=== PATIENT | male | born 1980 | race Caucasian/White ===

== ENCOUNTER 2017-02-13 10:23 | Emergency (ER) | payer BC ==
--- NOTE | 2017-02-13 13:08 | ED CLINICAL REPORT ---
Clinical Report - Physicians/Mid Levels [facility] [address] [place] [address] 02/13/2017 10:23 Patient: CONRADO TOLENTINO Time Seen: 10:40. Arrived- By private vehicle. Historian- patient. HISTORY OF PRESENT ILLNESS Chief Complaint: CHEST PAIN. At its maximum, severity described as moderate. When seen in the E.D., severity described as moderate. This started today at about 8 AM and is still present. It was abrupt in onset and has been constant. Onset during rest. It is described as sharp and it is described as located in the central chest area. No radiation. No nausea or vomiting. He has had moderate difficulty breathing and has experienced diaphoresis. (he has associated R arm numbness). REVIEW OF SYSTEMS No chills, fever, calf pain or pedal edema. He has experienced sweats. He has had severe palpitations of sudden onset. The palpitations seem rapid. All systems otherwise negative, except as recorded above. PAST HISTORY PCP - SUSAN Sanchez. Problems: Anxiety Reaction. Hypertension. Bronchitis. Additional Surgeries: EGD. Medications: None. Allergies: None. SOCIAL HISTORY Smoker- current status unknown (chews tobacco). Heavy alcohol use; consumes a large amount of beer. (last night). History of drug use weeks: cocaine, marijuana. Recently used drugs yesterday. Is a local resident. FAMILY HISTORY No history of aortic aneurysm or dissection. Hypertension in first-degree relative (father) and grandparent. ADDITIONAL NOTES The nursing notes have been reviewed. PHYSICAL EXAM Vital Signs: 02/13/2017 10:26 BP: 142/95. HR: 128. RR: 20. O2 saturation: 97%. Temp: 99.0 F. Have been reviewed. Appearance: Alert. Anxious. Eyes: Pupils equal, round and reactive to light. ENT: Pharynx normal. Neck: Normal inspection. Neck supple. CVS: Normal heart rate and rhythm. Heart sounds normal. Respiratory: No respiratory distress. Breath sounds normal. Abdomen: Soft and nontender. Bowel sounds normal. No organomegaly. No mass. Back: Normal external inspection. Skin: Skin warm and dry. Normal skin color. No rash. Normal skin turgor. Extremities: Extremities exhibit normal ROM. No clubbing present. No calf tenderness. No lower extremity edema. LABS, X-RAYS, AND EKG EKG: Rate: 123. Tachycardia. Prior EKG unavailable. The study has been independently viewed by me. Chest X-ray: No acute disease. The X-rays were independently viewed by me. Laboratory Tests: UA-Culture if indicated: (MERARI: 02/13/2017 11:50) ( [facility] [place]/13[place] 12:13) Final results Test Result Flag Units (Reference) URINE COLOR YELLOW URINE APPEARANCE CLEAR URINE GLUCOSE 1+ (NEGATIVE) URINE BILIRUBIN NEGATIVE (NEGATIVE) URINE KETONE 1+ (NEGATIVE) URINE SPECIFIC GRAVITY >= 1.030 (1.010-1.030) URINE PH 5.5 (5.0-8.0) URINE PROTEIN TRACE (NEGATIVE) URINE UROBILINOGEN 0.2 EU/dL (0.2-1.0) URINE NITRITE NEGATIVE (NEGATIVE) URINE BLOOD NEGATIVE (NEGATIVE) URINE LEUK ESTERASE NEGATIVE (NEGATIVE) URINE RBC 0-1 rbc/hpf (0-1) URINE WBC 1-3 wbc/hpf (0-1) URINE EPITHELIAL CELLS RARE EPI/hpf (0-5) URINE BACTERIA FEW (1+) (NONE SEEN) URINE COMMENT CULT NOT INDICATED 1+ MUCOUS. RARE HYALINE CAST.URINE CULTURES ARE SET-UP BASED ON THE FOLLOWING CRITERIA:POSITIVE NITRITEPOSITIVE LEUKOCYTE ESTERASEGREATER THAN 10 WHITE BLOOD CELLSMODERATE (2+) OR GREATER BACTERIA CBC w Diff: (MERARI: 02/13/2017 10:35) ( [facility] [place] 02/13/2017 10:45) Final results Test Result Flag Units (Reference) WHITE BLOOD COUNT 13.2 H K/uL (4.5-11.5) RED BLOOD COUNT 5.23 M/uL (4.50-5.90) HEMOGLOBIN 16.8 gm/dL (13.5-17.5) HEMATOCRIT 49.6 % (41.0-53.0) MEAN CELL VOLUME 95 fL (80-100) MEAN CORPUSCULAR HGB 32 pg (26-34) MEAN CORPUSCULAR HGB CONC 34 g/dL (31-37) RED CELL DISTRIBUTION WIDTH 13.8 % (11.6-14.8) PLATELET COUNT 232 K/uL (150-400) NEUTROPHIL % 83.1 H % (50-75) LYMPH % 10.9 L % (25-40) MONO % 5.6 % (3-14) EOSINOPHIL % 0.1 % (0-4) BASOPHIL % 0.3 % (0-2) [id number]: (MERARI: 02/13/2017 10:35) ( [facility] 02/13/2017 11:36) Final results Test Result Flag Units (Reference) D-DIMER QUANTITATIVE < 0.27 L ug/mLFEU (0.27-0.52) The primary value of this quantitative assay relates toits negative predictive value (i.e. exclusion) of pulmonaryembolism/deep vein thrombosis/DIC.Elevated levels of d-dimer may also occur with:, age, cancer, inflammation, liver disease,post-op, infection, hematoma, coronary disease, peripheralarteriopathy, bleeding disorders and thrombolytic treatment.Results should be correlated with other clinical andradiological data.Testing Methodology: Latex Immunoassay PT with INR: (MERARI: 02/13/2017 10:35) ( [facility] 02/13/2017 11:10) Final results Test Result Flag Units (Reference) INR 0.9 (0.8-1.2) Low Intensity Therapy: INR 1.5-2.0 PT range 18.5-23.1Mod.Intensity Therapy: INR 2.0-3.0 PT range 23.1-31.5High Intensity Therapy: INR 2.5-3.5 PT range 27.4-35.5High Intensity Therapy 2: INR 3.0-4.0 PT range 31.5-39.3 APTT 21 L SECONDS (24-34) Ethyl Alcohol: (MERARI: 02/13/2017 10:35) ( [facility] [place]/13[place] 11:45) Final results Test Result Flag Units (Reference) ETHYL ALCOHOL 45 H mg/dL (3-10) BNP: (MERARI: 02/13/2017 10:35) ( [facility] [place] 02/13/2017 11:10) Final results Test Result Flag Units (Reference) B-TYPE NATRIURETIC PEPTIDE < 5.0 L pg/ml (5-100) Urine Drug Screen: (MERARI: 02/13/2017 11:50) ( [facility] 02/13/2017 12:28) Final results Test Result Flag Units (Reference) AMPHETAMINE/METHAMPHETAMINE NEGATIVE (NEGATIVE) BARBITURATE NEGATIVE (NEGATIVE) BENZODIAZEPINE NEGATIVE (NEGATIVE) CANNABINOID POSITIVE H (NEGATIVE) COCAINE POSITIVE H (NEGATIVE) ECSTASY NEGATIVE (NEGATIVE) METHADONE NEGATIVE (NEGATIVE) OPIATE NEGATIVE (NEGATIVE) The urine drug screen is a qualitative screening test fordrug overdose and abuse. All screen results should beconsidered as presumptive.Drugs screened for are as follows:BenzodiazepinesCocaineAmphetamines/MetamphetaminesTHC (Tetrahydrocannabinol)OpiatesBarbituratesEcstasyMethadonePositive results are unconfirmed. For confirmation, notifythe lab for the specimen to be sent to the reference lab.All confirmations must be performed by a differentmethodology.The ingestion of natural herbal and plant productscontaining Ephedra/Ephedra metabolites can produce in urineone or more substances capable of cross reacting withamphetamine/methamphetamine immunoassays. These testsprovide a preliminary result only. A more specificalternative chemical method must be used to obtain aconfirmed analytical result. CHEM 13 PANEL: (MERARI: 02/13/2017 10:35) ( [facility] 02/13/2017 11:09) Final results Test Result Flag Units (Reference) GLUCOSE 126 H mg/dL (70-110) BUN 14 mg/dL (7-18) CREATININE 0.9 mg/dL (0.6-1.3) Estimated GFR >60 mL/min Estimated GFR- >60 mL/min Note: Persistent reduction over 3 months in eGFR<60 mL/min/1.73 m2 defines CKD. Patients with eGFR values>=60 mL/min/1.73 m2 may also have CKD if evidence ofpersistent proteinuria. Additional information may be foundat [email or web address]. SODIUM 142 mmol/L (136-145) POTASSIUM 3.6 mmol/L (3.5-5.1) CHLORIDE 101 mmol/L (98-107) CARBON DIOXIDE 24 mmol/L (21-32) CALCIUM 9.1 mg/dL (8.5-10.1) TOTAL PROTEIN 8.9 H g/dL (6.4-8.2) ALBUMIN 4.4 g/dL (3.3-5.0) BILIRUBIN, TOTAL 0.3 mg/dL (0.0-1.0) ALKALINE PHOSPHATASE 84 U/L (46-116) AST (SGOT) 20 U/L (15-37) ALT (SGPT) 22 U/L (12-78) MAGNESIUM 1.9 mg/dL (1.8-2.4) LIPASE 182 U/L (73-393) AMYLASE 56 U/L (25-115) CPK 88 U/L (24-260) TROPONIN I 0.08 ng/mL (0.00-1.5) TROPONIN REFERENCE RANGE:<0.1 NEGATIVE0.1-1.5 INDETERMINANT>1.5 POSITIVE . PROGRESS AND PROCEDURES Patient/family counseled. Disposition: Discharged. Condition: stable. CLINICAL IMPRESSION Chest pain. Substance abuse- alcohol, marijuana, cocaine. INSTRUCTIONS No driving or operating machinery today. Rest. No alcohol. Seek medical help to quit drinking. (Pursue substance abuse counseling and therapy as discussed. Please contact some of the services on the list you were provided.). Warnings: Further evaluation is necessary. Follow-up: Follow up with your doctor in five days. Call for the next available appointment. Understanding of the discharge instructions verbalized by patient. (Electronically signed by Pacheco Garza MD 02/13/2017 13:25)
--- NOTE | 2017-02-13 13:08 | ED ORDER SUMMARY ---
..... Patient: CONRADO TOLENTINO OrderSheet [facility] VisitID: [id number] [place] [address] 36y, M Registration Date/Time: 02/13/2017 ORDER SHEET Weight: 74.8 kg (stated) Allergies: None GENERAL ORDERS: Chest 1V Urgent (10:34 02/13/2017 DDean R.N. per protocol) (Ack 10:51 Syed) (10:52 DDean R.N.) Spoon Maker (Continuous) (10:35 02/13/2017 DDean R.N. per protocol) (10:36 DDean R.N.) UA-Culture if indicated Urgent (10:36 02/13/2017 DDean R.N. per protocol) (Ack 10:51 Syed) (11:55 DDean R.N.) Cardiac Panel Stat (10:36 02/13/2017 DDean R.N. per protocol) (10:40 Nelly CHIN) (Cancelled: Other10:40 Nelly CHIN) Oxygen (2 L/min) (NC) (10:36 02/13/2017 DDean R.N. per protocol) (10:36 DDean R.N.) EKG - ER Stat (10:36 02/13/2017 DDean R.N. per protocol) (10:36 LNations ER Tech1) CBC w Diff Urgent (10:41 02/13/2017 Nelly CHIN) (Ack 10:51 Syed) (10:52 DDean R.N.) CMP Urgent (10:41 02/13/2017 Nelly CHIN) (Ack 10:51 Syed) (10:52 DDean R.N.) PT with INR Urgent (10:41 02/13/2017 Nelly CHIN) (Ack 10:51 Syed) (10:52 DDean R.N.) PTT Urgent (10:41 02/13/2017 Nelly CHIN) (Ack 10:51 Syed) (10:52 DDean R.N.) Amylase Urgent (10:41 02/13/2017 Nelly CHIN) (Ack 10:51 Syed) (10:52 DDean R.N.) Lipase Urgent (10:41 02/13/2017 Nelly CHIN) (Ack 10:51 Syed) (10:52 DDean R.N.) CPK Urgent (10:41 02/13/2017 Nelly CHIN) (Ack 10:51 Syed) (10:52 DDean R.N.) Troponin-I Urgent (10:41 02/13/2017 Nelly CHIN) (Ack 10:51 Syed) (10:52 DDean R.N.) Urine Drug Screen Urgent (10:41 02/13/2017 Nelly CHIN) (Ack 10:51 Syed) (11:55 DDean R.N.) BNP Urgent (10:41 02/13/2017 Nelly CHIN) (Ack 10:51 Syed) (10:52 DDean R.N.) Ethyl Alcohol Urgent (11:13 02/13/2017 Nelly CHIN) (11:18 TJoerdawit) D-Dimer Urgent (11:14 02/13/2017 Nelly CHIN) (11:18 TJoerdawit) MEDICATION ORDERS: Aspirin PO 325 mg (NOW) (10:41 02/13/2017 Nelly CHIN) (10:46 DDean R.N.) IV FLUIDS: IV Saline Lock (10:36 02/13/2017 DDean R.N. per protocol) (Ack 10:36 DDean R.N.) (10:55 DDean R.N.) ORDER SHEET NOTES: [Electronically signed by Pacheco Garza MD (13:25 02/13/2017)] [Electronically signed by Niecy Peck R.N. (14:20 02/13/2017)] [Electronically locked/signed by Niecy Peck R.N. (14:20 02/13/2017)]
--- NOTE | 2017-02-13 13:08 | ED NURSING NOTES ---
Clinical Report - Nurses [facility] [address] [place] [address] 02/13/2017 10:23 Patient: CONRADO TOLENTINO TRIAGE Triage time 1025. Acuity: LEVEL 3. Chief Complaint: CHEST PAIN and (midline chest pressure onset 0730 today while laying in bed. Pt states he did take some cocaine last night). ALONSO COMA SCORE: Alonso Coma Scale: 15- eyes open spontaneously (4); best verbal response- oriented x 4 (5); best motor response- obeys commands (6). --10:32 Niecy Peck R.N. 10:26 02/13/17. BP: 142/95. HR: 128. RR: 20. O2 saturation: 97%. Temp: 99.0 F. Pain level now 10. --10:32 Niecy Peck R.N. Weight: 74.8 kg stated. Height/Length: 68 inches Per Patient. BMI: 25.1. --10:25 Niecy Peck R.N. Medications None. --10:31 Niecy Peck R.N. Allergies None. --10:31 Niecy Peck R.N. History Arrived by private vehicle. Historian: patient. Accompanied by spouse. No primary care physician. Onset. (0730). He has had difficulty breathing. Reports experiencing sweating episodes. No nausea or vomiting. PAST MEDICAL HX: Hypertension. ( Hypoglycemia, ulcers). SOCIAL HX: Light tobacco smoker (chews 1 can a week). Alcohol use; consumes six beers a day. History of drug use: cocaine, marijuana. --10:32 Niecy Peck R.N. Interventions ID band on patient. To treatment room. --10:32 Niecy Peck R.N. PHYSICAL ASSESSMENT 10:25. Ambulatory to room. Patient gowned. GENERAL / NEURO / PSYCH: Alert. Oriented X 4. Appears in pain and anxious. RESPIRATORY: Respirations not labored. Chest wall tenderness. CVS: Pulses within normal limits. Capillary refill less than 2 seconds. GI / : Abdomen soft. EXTREMITIES: No lower extremity edema. SKIN: Skin is warm and dry. ( pt states that his face feels flushed). --10:34 Niecy Peck R.N. NURSING PROGRESS NOTES 10:25. Oxygen administered. Monitoring of patient in place. Patient gowned. Head of bed elevated. Reassurance given. Patient identifiers checked. Call light placed in reach. Bed placed in lowest position. Patient placed in chair. Patient ready for evaluation- chart flagged. --10:32 Niecy Peck R.N. 10:33 02/13/2017 Site #1 started via IV in the left antecubital space with an 20g angiocath, with aseptic technique and good blood return; one attempt. Blood drawn: rainbow set. Sent to the lab. Saline lock flushed with 10 mL saline (by NOY Smiley). --10:33 Niecy Peck R.N. EKG time: (1035). EKG was ordered, performed by a tech and shown to the ED physician. --10:38 Alexandra Drew ER Tech1 10:42 02/13/2017 Site #2 started via IV in the left antecubital space with an 20g angiocath, with aseptic technique and good blood return; one attempt. Blood drawn: rainbow set. Labeled in the presence of the patient and sent to the lab. Saline lock flushed with 10 mL saline. --10:42 Sherin Santillan R.N. 10:43 02/13/17. BP: 150/99. HR: 119. RR: 18. O2 saturation: 99% on nasal cannula at 2 liters/minute. Temp: deferred. Pain level now: 02/07. --10:44 Niecy Peck R.N. 10:42 02/13/2017 Site #2 removed upon discharge. Manual pressure and bandaid applied (Duplicate entry of IV site.). --10:54 Niecy Peck R.N. 10:46 02/13/2017 Aspirin PO Tablets 324 mg given. Allergies verified and confirmed 5 rights. --10:46 Niecy Peck R.N. 10:51 02/13/17. Portable chest x-ray ordered, performed and shown to the ED physician. --10:51 Niecy Peck R.N. 11:00 ERMD in to talk with pt and . Pt c/o headache. --11:42 Niecy Peck R.N. 11:15 02/13/17. BP: 143/86. HR: 118. RR: 16. O2 saturation: 100%. Temp: deferred. Pain level now: 02/07. --11:43 Niecy Peck R.N. 11:40. Patient ID band checked for patient name and birthdate. Clean catch urine collected with return of josse-colored clear urine; sample sent to lab for urinalysis, culture and drug screen. Specimen labeled in the presence of the patient (Pt voided 400cc at bedside.). --11:53 Niecy Peck R.N. 11:48 02/13/17. BP: 145/92. HR: 112. RR: 16. O2 saturation: 100% on nasal cannula. Temp: deferred. Pain level now: 02/07. --11:54 Niecy Peck R.N. 12:15 02/13/17. BP: 136/90. HR: 114. RR: 16. O2 saturation: 100%. Temp: deferred. Pain level now: 02/07. Additional comments: waiting for lab results, pt resting quietly . --13:47 Niecy Peck R.N. 12:45 02/13/17. BP: 140/88. HR: 110. RR: 18. O2 saturation: 100%. Temp: deferred. Pain level now: 02/07. --14:15 Niecy Peck R.N. DISPOSITION / DISCHARGE 13:15. Condition at departure: improved and stable. No learning barriers present. Discharge instructions provided and reviewed with the patient and spouse. Treatments reviewed (follow up with AA sponsor, given info [facility] rehab program). Patient and spouse verbalized understanding. Written instructions provided in Niuean. The patient was discharged home and accompanied by spouse. He left the Emergency Department ambulatory and via private vehicle. Spouse driving. --13:43 Niecy Peck R.N. 13:15 02/13/17. BP: 127/73. HR: 108. RR: 16. O2 saturation: 100%. Temp: deferred. Pain level now: 02/07. --13:43 Niecy Peck R.N. Locked/Released at 02/13/2017 14:20 by Niecy Peck R.N.
--- NOTE | 2017-02-13 13:08 | ED CLINICAL REPORT ---
Clinical Report - Physicians/Mid Levels [facility] [address] [place] [address] 02/13/2017 10:23 Patient: CONRADO TOLENTINO Time Seen: 10:40. Arrived- By private vehicle. Historian- patient. HISTORY OF PRESENT ILLNESS Chief Complaint: CHEST PAIN. At its maximum, severity described as moderate. When seen in the E.D., severity described as moderate. This started today at about 8 AM and is still present. It was abrupt in onset and has been constant. Onset during rest. It is described as sharp and it is described as located in the central chest area. No radiation. No nausea or vomiting. He has had moderate difficulty breathing and has experienced diaphoresis. (he has associated R arm numbness). REVIEW OF SYSTEMS No chills, fever, calf pain or pedal edema. He has experienced sweats. He has had severe palpitations of sudden onset. The palpitations seem rapid. All systems otherwise negative, except as recorded above. PAST HISTORY PCP - SUSAN Sanchez. Problems: Anxiety Reaction. Hypertension. Bronchitis. Additional Surgeries: EGD. Medications: None. Allergies: None. SOCIAL HISTORY Smoker- current status unknown (chews tobacco). Heavy alcohol use; consumes a large amount of beer. (last night). History of drug use weeks: cocaine, marijuana. Recently used drugs yesterday. Is a local resident. FAMILY HISTORY No history of aortic aneurysm or dissection. Hypertension in first-degree relative (father) and grandparent. ADDITIONAL NOTES The nursing notes have been reviewed. PHYSICAL EXAM Vital Signs: 02/13/2017 10:26 BP: 142/95. HR: 128. RR: 20. O2 saturation: 97%. Temp: 99.0 F. Have been reviewed. Appearance: Alert. Anxious. Eyes: Pupils equal, round and reactive to light. ENT: Pharynx normal. Neck: Normal inspection. Neck supple. CVS: Normal heart rate and rhythm. Heart sounds normal. Respiratory: No respiratory distress. Breath sounds normal. Abdomen: Soft and nontender. Bowel sounds normal. No organomegaly. No mass. Back: Normal external inspection. Skin: Skin warm and dry. Normal skin color. No rash. Normal skin turgor. Extremities: Extremities exhibit normal ROM. No clubbing present. No calf tenderness. No lower extremity edema. LABS, X-RAYS, AND EKG EKG: Rate: 123. Tachycardia. Prior EKG unavailable. The study has been independently viewed by me. Chest X-ray: No acute disease. The X-rays were independently viewed by me. Laboratory Tests: UA-Culture if indicated: (MERARI: 02/13/2017 11:50) ( [facility] [place]/13[place] 12:13) Final results Test Result Flag Units (Reference) URINE COLOR YELLOW URINE APPEARANCE CLEAR URINE GLUCOSE 1+ (NEGATIVE) URINE BILIRUBIN NEGATIVE (NEGATIVE) URINE KETONE 1+ (NEGATIVE) URINE SPECIFIC GRAVITY >= 1.030 (1.010-1.030) URINE PH 5.5 (5.0-8.0) URINE PROTEIN TRACE (NEGATIVE) URINE UROBILINOGEN 0.2 EU/dL (0.2-1.0) URINE NITRITE NEGATIVE (NEGATIVE) URINE BLOOD NEGATIVE (NEGATIVE) URINE LEUK ESTERASE NEGATIVE (NEGATIVE) URINE RBC 0-1 rbc/hpf (0-1) URINE WBC 1-3 wbc/hpf (0-1) URINE EPITHELIAL CELLS RARE EPI/hpf (0-5) URINE BACTERIA FEW (1+) (NONE SEEN) URINE COMMENT CULT NOT INDICATED 1+ MUCOUS. RARE HYALINE CAST.URINE CULTURES ARE SET-UP BASED ON THE FOLLOWING CRITERIA:POSITIVE NITRITEPOSITIVE LEUKOCYTE ESTERASEGREATER THAN 10 WHITE BLOOD CELLSMODERATE (2+) OR GREATER BACTERIA CBC w Diff: (MERARI: 02/13/2017 10:35) ( [facility] [place] 02/13/2017 10:45) Final results Test Result Flag Units (Reference) WHITE BLOOD COUNT 13.2 H K/uL (4.5-11.5) RED BLOOD COUNT 5.23 M/uL (4.50-5.90) HEMOGLOBIN 16.8 gm/dL (13.5-17.5) HEMATOCRIT 49.6 % (41.0-53.0) MEAN CELL VOLUME 95 fL (80-100) MEAN CORPUSCULAR HGB 32 pg (26-34) MEAN CORPUSCULAR HGB CONC 34 g/dL (31-37) RED CELL DISTRIBUTION WIDTH 13.8 % (11.6-14.8) PLATELET COUNT 232 K/uL (150-400) NEUTROPHIL % 83.1 H % (50-75) LYMPH % 10.9 L % (25-40) MONO % 5.6 % (3-14) EOSINOPHIL % 0.1 % (0-4) BASOPHIL % 0.3 % (0-2) [id number]: (MERARI: 02/13/2017 10:35) ( [facility] 02/13/2017 11:36) Final results Test Result Flag Units (Reference) D-DIMER QUANTITATIVE < 0.27 L ug/mLFEU (0.27-0.52) The primary value of this quantitative assay relates toits negative predictive value (i.e. exclusion) of pulmonaryembolism/deep vein thrombosis/DIC.Elevated levels of d-dimer may also occur with:, age, cancer, inflammation, liver disease,post-op, infection, hematoma, coronary disease, peripheralarteriopathy, bleeding disorders and thrombolytic treatment.Results should be correlated with other clinical andradiological data.Testing Methodology: Latex Immunoassay PT with INR: (MERARI: 02/13/2017 10:35) ( [facility] 02/13/2017 11:10) Final results Test Result Flag Units (Reference) INR 0.9 (0.8-1.2) Low Intensity Therapy: INR 1.5-2.0 PT range 18.5-23.1Mod.Intensity Therapy: INR 2.0-3.0 PT range 23.1-31.5High Intensity Therapy: INR 2.5-3.5 PT range 27.4-35.5High Intensity Therapy 2: INR 3.0-4.0 PT range 31.5-39.3 APTT 21 L SECONDS (24-34) Ethyl Alcohol: (MERARI: 02/13/2017 10:35) ( [facility] [place] [facility] Final results Test Result Flag Units (Reference) ETHYL ALCOHOL 45 H mg/dL (3-10) BNP: (MERARI: 02/13/2017 10:35) ( [facility] [place] [place]/13[place] 11:10) Final results Test Result Flag Units (Reference) B-TYPE NATRIURETIC PEPTIDE < 5.0 L pg/ml (5-100) Urine Drug Screen: (MERARI: 02/13/2017 11:50) ( [facility] 02/13/2017 12:28) Final results Test Result Flag Units (Reference) AMPHETAMINE/METHAMPHETAMINE NEGATIVE (NEGATIVE) BARBITURATE NEGATIVE (NEGATIVE) BENZODIAZEPINE NEGATIVE (NEGATIVE) CANNABINOID POSITIVE H (NEGATIVE) COCAINE POSITIVE H (NEGATIVE) ECSTASY NEGATIVE (NEGATIVE) METHADONE NEGATIVE (NEGATIVE) OPIATE NEGATIVE (NEGATIVE) The urine drug screen is a qualitative screening test fordrug overdose and abuse. All screen results should beconsidered as presumptive.Drugs screened for are as follows:BenzodiazepinesCocaineAmphetamines/MetamphetaminesTHC (Tetrahydrocannabinol)OpiatesBarbituratesEcstasyMethadonePositive results are unconfirmed. For confirmation, notifythe lab for the specimen to be sent to the reference lab.All confirmations must be performed by a differentmethodology.The ingestion of natural herbal and plant productscontaining Ephedra/Ephedra metabolites can produce in urineone or more substances capable of cross reacting withamphetamine/methamphetamine immunoassays. These testsprovide a preliminary result only. A more specificalternative chemical method must be used to obtain aconfirmed analytical result. CHEM 13 PANEL: (MERARI: 02/13/2017 10:35) ( [facility] 02/13/2017 11:09) Final results Test Result Flag Units (Reference) GLUCOSE 126 H mg/dL (70-110) BUN 14 mg/dL (7-18) CREATININE 0.9 mg/dL (0.6-1.3) Estimated GFR >60 mL/min Estimated GFR- >60 mL/min Note: Persistent reduction over 3 months in eGFR<60 mL/min/1.73 m2 defines CKD. Patients with eGFR values>=60 mL/min/1.73 m2 may also have CKD if evidence ofpersistent proteinuria. Additional information may be foundat [email or web address]. SODIUM 142 mmol/L (136-145) POTASSIUM 3.6 mmol/L (3.5-5.1) CHLORIDE 101 mmol/L (98-107) CARBON DIOXIDE 24 mmol/L (21-32) CALCIUM 9.1 mg/dL (8.5-10.1) TOTAL PROTEIN 8.9 H g/dL (6.4-8.2) ALBUMIN 4.4 g/dL (3.3-5.0) BILIRUBIN, TOTAL 0.3 mg/dL (0.0-1.0) ALKALINE PHOSPHATASE 84 U/L (46-116) AST (SGOT) 20 U/L (15-37) ALT (SGPT) 22 U/L (12-78) MAGNESIUM 1.9 mg/dL (1.8-2.4) LIPASE 182 U/L (73-393) AMYLASE 56 U/L (25-115) CPK 88 U/L (24-260) TROPONIN I 0.08 ng/mL (0.00-1.5) TROPONIN REFERENCE RANGE:<0.1 NEGATIVE0.1-1.5 INDETERMINANT>1.5 POSITIVE . PROGRESS AND PROCEDURES Patient/family counseled. Disposition: Discharged. Condition: stable. CLINICAL IMPRESSION Chest pain. Substance abuse- alcohol, marijuana, cocaine. INSTRUCTIONS No driving or operating machinery today. Rest. No alcohol. Seek medical help to quit drinking. (Pursue substance abuse counseling and therapy as discussed. Please contact some of the services on the list you were provided.). Warnings: Further evaluation is necessary. Follow-up: Follow up with your doctor in five days. Call for the next available appointment. Understanding of the discharge instructions verbalized by patient. (Electronically signed by Pacheco Garza MD 02/13/2017 13:25)
--- NOTE | 2017-02-13 13:08 | ED ORDER SUMMARY ---
..... Patient: CONRADO TOLENTINO OrderSheet [facility] VisitID: [id number] [place] [address] 36y, M Registration Date/Time: 02/13/2017 ORDER SHEET Weight: 74.8 kg (stated) Allergies: None GENERAL ORDERS: Chest 1V Urgent (10:34 02/13/2017 DDean R.N. per protocol) (Ack 10:51 Syed) (10:52 DDean R.N.) Deli Worker (Continuous) (10:35 02/13/2017 DDean R.N. per protocol) (10:36 DDean R.N.) UA-Culture if indicated Urgent (10:36 02/13/2017 DDean R.N. per protocol) (Ack 10:51 Syed) (11:55 DDean R.N.) Cardiac Panel Stat (10:36 02/13/2017 DDean R.N. per protocol) (10:40 Nelly CHIN) (Cancelled: Other10:40 Nelly CHIN) Oxygen (2 L/min) (NC) (10:36 02/13/2017 DDean R.N. per protocol) (10:36 DDean R.N.) EKG - ER Stat (10:36 02/13/2017 DDean R.N. per protocol) (10:36 LNations ER Tech1) CBC w Diff Urgent (10:41 02/13/2017 Nelly CHIN) (Ack 10:51 Syed) (10:52 DDean R.N.) CMP Urgent (10:41 02/13/2017 Nelly CHIN) (Ack 10:51 Syed) (10:52 DDean R.N.) PT with INR Urgent (10:41 02/13/2017 Nelly CHIN) (Ack 10:51 Syed) (10:52 DDean R.N.) PTT Urgent (10:41 02/13/2017 Nelly CHIN) (Ack 10:51 Syed) (10:52 DDean R.N.) Amylase Urgent (10:41 02/13/2017 Nelly CHIN) (Ack 10:51 Syed) (10:52 DDean R.N.) Lipase Urgent (10:41 02/13/2017 Nelly CHIN) (Ack 10:51 Syed) (10:52 DDean R.N.) CPK Urgent (10:41 02/13/2017 Nelly CHIN) (Ack 10:51 Syed) (10:52 DDean R.N.) Troponin-I Urgent (10:41 02/13/2017 Nelly CHIN) (Ack 10:51 Syed) (10:52 DDean R.N.) Urine Drug Screen Urgent (10:41 02/13/2017 Nelly CHIN) (Ack 10:51 Syed) (11:55 DDean R.N.) BNP Urgent (10:41 02/13/2017 Nelly CHIN) (Ack 10:51 Syed) (10:52 DDean R.N.) Ethyl Alcohol Urgent (11:13 02/13/2017 Nelly CHIN) (11:18 TJoerdawit) D-Dimer Urgent (11:14 02/13/2017 Nelly CHIN) (11:18 TJoerdawit) MEDICATION ORDERS: Aspirin PO 325 mg (NOW) (10:41 02/13/2017 Nelly CHIN) (10:46 DDean R.N.) IV FLUIDS: IV Saline Lock (10:36 02/13/2017 DDean R.N. per protocol) (Ack 10:36 DDean R.N.) (10:55 DDean R.N.) ORDER SHEET NOTES: [Electronically signed by Pacheco Garza MD (13:25 02/13/2017)] [Electronically signed by Niecy Peck R.N. (14:20 02/13/2017)] [Electronically locked/signed by Niecy Peck R.N. (14:20 02/13/2017)]
--- NOTE | 2017-02-13 13:52 | DIAGNOSTIC IMAGING REPORT ---
PROCEDURE: XR CHEST 1 VIEW INDICATION: CHEST PAIN TECHNIQUE: Portable AP view (105 5 hours). COMPARISON: None. FINDINGS: Allowing for overlying wires and electrodes, lungs are clear. Heart and mediastinum are normal. Thorax is normal. IMPRESSION: 1. Negative chest.
--- NOTE | 2017-02-13 14:20 | ED MED RECONCILIATION SUMMARY ---
Patient: CONRADO TOLENTINO Medication Reconciliation Report [facility] VisitID: [id number] [address] [place] [address] 36y, M Registration Date/Time: 02/13/2017 Weight: 74.8 kg Height/Length: 68 in. BMI: 25.1 ALLERGIES: None The patient's Home Medications are listed below: NONE. The source(s) of the original Home Medication information: Not obtained. The following Medications were given to the patient in the Emergency Department: Aspirin [PO] PO 324 mg, administered: 02/13/2017 10:46:00 AM The following Medications were prescribed to the patient: None.
--- NOTE | 2017-02-13 14:20 | ED MED RECONCILIATION SUMMARY ---
Patient: CONRADO TOLENTINO Medication Reconciliation Report [facility] VisitID: [id number] [address] [place] [address] 36y, M Registration Date/Time: 02/13/2017 Weight: 74.8 kg Height/Length: 68 in. BMI: 25.1 ALLERGIES: None The patient's Home Medications are listed below: NONE. The source(s) of the original Home Medication information: Not obtained. The following Medications were given to the patient in the Emergency Department: Aspirin [PO] PO 324 mg, administered: 02/13/2017 10:46:00 AM The following Medications were prescribed to the patient: None.
--- NOTE | 2017-02-13 14:20 | ED DISCHARGE INSTRUCTIONS ---
Patient: CONRADO TOLENTINO General Instructions [facility] VisitID: [id number] [place] [address] 36y, M Registration Date/Time: 02/13/2017 Chest pain. Substance abuse- alcohol, marijuana, cocaine. INSTRUCTIONS No driving or operating machinery today. Rest. No alcohol. Seek medical help to quit drinking. (Pursue substance abuse counseling and therapy as discussed. Please contact some of the services on the list you were provided.). Warnings: Further evaluation is necessary. Follow-up: Follow up with your doctor in five days. Call for the next available appointment. Understanding of the discharge instructions verbalized by patient. No driving or operating machinery today. Rest. (Electronically signed by Pacheco Garza MD 02/13/2017 13:25)
--- NOTE | 2017-02-13 14:20 | ED MAR SUMMARY ---
..... Medication Administration Record [facility] [address] [place] [address] Patient: CONRADO TOLENTINO Visit ID: [id number] 36y, M Weight: 74.8 kg Height/Length: 68 in BMI: 25.1 ALLERGIES: None Given 10:46 02/13/2017 Cisco, Niecy RChris Medication Administered: ASPIRIN [PO], Dose: 324 mg Tablets PO. Medication Ordered: Aspirin PO 325 mg (NOW).
--- NOTE | 2017-02-13 14:20 | ED DISCHARGE INSTRUCTIONS ---
Patient: CONRADO TOLENTINO General Instructions [facility] VisitID: [id number] [place] [address] 36y, M Registration Date/Time: 02/13/2017 Chest pain. Substance abuse- alcohol, marijuana, cocaine. INSTRUCTIONS No driving or operating machinery today. Rest. No alcohol. Seek medical help to quit drinking. (Pursue substance abuse counseling and therapy as discussed. Please contact some of the services on the list you were provided.). Warnings: Further evaluation is necessary. Follow-up: Follow up with your doctor in five days. Call for the next available appointment. Understanding of the discharge instructions verbalized by patient. No driving or operating machinery today. Rest. (Electronically signed by Pacheco Garza MD 02/13/2017 13:25)
--- NOTE | 2017-02-13 14:20 | ED MAR SUMMARY ---
..... Medication Administration Record [facility] [address] [place] [address] Patient: CONRADO TOLENTINO Visit ID: [id number] 36y, M Weight: 74.8 kg Height/Length: 68 in BMI: 25.1 ALLERGIES: None Given 10:46 02/13/2017 Cisco, Niecy RChris Medication Administered: ASPIRIN [PO], Dose: 324 mg Tablets PO. Medication Ordered: Aspirin PO 325 mg (NOW).
== END 2017-02-13 13:15 | disposition home or self-care (01) ==
LOC: ED SRH 10:23
DX: R07.9 Chest pain, unspecified (principal); F14.10 Cocaine abuse, uncomplicated; F10.10 Alcohol abuse, uncomplicated; F12.10 Cannabis abuse, uncomplicated; I10 Essential (primary) hypertension; F17.210 Nicotine dependence, cigarettes, uncomplicated
CPT/HCPCS: 90004; 90100; 90616; 91320; 91556; 92010; 92235; 92530; 92610; 92720; 92760; 92761; 92762; 92763; 92764; 92765; 92766; 92767; 94001; 94060; 95059